=== PATIENT | male | born 1990 ===

== ENCOUNTER 2021-03-13 06:36 | Observation (INO) | payer OTHER ==
[2021-03-13] MEDS ORDERED: SODIUM CHLORIDE 0.9% 1,000 ML IV STA (06:51)
[2021-03-13] MEDS ORDERED: ACETAMINOPHEN TAB 500 MG TAB PO STA (06:52)
--- NOTE | 2021-03-13 07:11 | XR ---
EXAMINATION TYPE: XR chest 2V DATE OF EXAM: 03/13/2021 COMPARISON: NONE HISTORY: Chest pain TECHNIQUE: Frontal and lateral views of the chest are obtained. FINDINGS: There is no focal air space opacity, pleural effusion, or pneumothorax seen. The cardiac silhouette size is within normal limits. The osseous structures are intact. IMPRESSION: No acute cardiopulmonary process.
--- NOTE | 2021-03-13 07:16 | CT ---
EXAMINATION TYPE: CT brain wo con DATE OF EXAM: 03/13/2021 COMPARISON: None HISTORY: Seizure, dizziness CT DLP: 1099.4 mGycm. Automated Exposure Control for Dose Reduction was Utilized. TECHNIQUE: CT scan of the head is performed without contrast. FINDINGS: There is a remote infarct involving the cortex and subcortical white matter in the right fr ontal lobe. There is no mass effect or shift of midline structures. There is no acute intraparenchyma l extra-axial hemorrhage. The ventricles, basal cisterns and sulci over convexities are within normal limits and there is no si gnificant atrophy. Posterior fossa is grossly normal. There are chronic inflammatory changes in the left maxillary sinus. There is a right frontal calvaria l defect. IMPRESSION: 1. No acute bleed or mass effect. 2. 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
--- NOTE | 2021-03-13 07:17 | ED ---
General Adult HPI - General Chief complaint: Dizziness Stated complaint: Dizziness, fever Time Seen by Provider: 03/13/21 06:44 Source: patient, EMS, RN notes reviewed Mode of arrival: EMS Limitations: language barrier - History of Present Illness Initial comments: This a 31-year-old male presents emergency department via EMS for episode of shaking, dizziness, not feeling well. Patient is here with friend who is translating stated that he was convulsing, shaking was not responding to [id number] months side noted to be spitting or foaming at the mouth that time he did stop shaking was confused but is at his baseline currently. Patient is not taking medications. Denies chest pain shortness breath abdominal pain states he just feels weak port fever specifically cough congestion. Patient had an episode like this in the past but denies any history of seizures that he's been diagnosed with. - Related Data Allergies Allergy/AdvReac Type Severity Reaction Status Date / Time No Known Allergies Allergy Verified 03/13/21 06:53 Review of Systems ROS Statement: Those systems with pertinent positive or pertinent negative responses have been documented in the HPI. ROS Other: All systems not noted in ROS Statement are negative. Past Medical History Past Medical History: No Reported History History of Any Multi-Drug Resistant Organisms: None Reported Past Surgical History: No Surgical Hx Reported Past Psychological History: No Psychological Hx Reported Smoking Status: Never smoker Past Alcohol Use History: None Reported Past Drug Use History: None Reported General Exam Limitations: language barrier General appearance: alert, in no apparent distress Head exam: Present: atraumatic, normocephalic, normal inspection Eye exam: Present: normal appearance, PERRL, EOMI. Absent: scleral icterus, conjunctival injection, periorbital swelling ENT exam: Present: normal oropharynx, mucous membranes moist, TM's normal bilaterally Neck exam: Present: normal inspection, full ROM. Absent: tenderness, meningismus, lymphadenopathy Respiratory exam: Present: normal lung sounds bilaterally. Absent: respiratory distress, wheezes, rales, rhonchi, stridor Cardiovascular Exam: Present: normal rhythm, tachycardia, normal heart sounds. Absent: systolic murmur, diastolic murmur, rubs, gallop, clicks GI/Abdominal exam: Present: soft, normal bowel sounds. Absent: distended, tenderness, guarding, rebound, rigid Neurological exam: Present: alert, oriented X3, CN II-XII intact, reflexes normal. Absent: motor sensory deficit Skin exam: Present: warm, dry, intact, normal color. Absent: rash Course Vital Signs 03/13/21 03/13/21 06:44 07:41 Temperature 99.4 F Pulse Rate 114 H 98 Respiratory 22 16 Rate Blood Pressure 179/103 153/91 O2 Sat by Pulse 98 98 Oximetry EKG Findings - EKG Comments: EKG Findings:: EKG performed at 6:46 sinus tachycardia inverted T waves noted diffusely Medical Decision Making - Medical Decision Making This a 31-year-old presented from via EMS after she This Appears to Be Related to a Seizure. CT Was Performed Which Showed Old Infarct on CT. Patient States He Had a Headache Injury 10 Years Ago When He Fell off a Horse. Patient Has No History of Seizures. Patient Has No Onset Seizures. Patient Be Admitted for Neurology Evaluation Also Noted to Have Abnormal EKG with No Baseline EKG. Patient Be Admitted for Repeat Cardiac Enzymes, Neurology Test Desk Trouble Locator Evaluation - Lab Data Result diagrams: 03/13/21 07:35 03/13/21 07:35 Lab Results 03/13/21 03/13/21 03/13/21 Range/Units 07:32 07:32 07:35 WBC 14.2 H (3.8-10.6) k/uL RBC 5.71 (4.30-5.90) m/uL Hgb 16.3 (13.0-17.5) gm/dL Hct 46.7 (39.0-53.0) % MCV 81.8 (80.0-100.0) fL MCH 28.5 (25.0-35.0) pg MCHC 34.9 (31.0-37.0) g/dL RDW 12.8 (11.5-15.5) % Plt Count 234 (150-450) k/uL MPV 7.4 Neutrophils % 84 % Lymphocytes % 9 % Monocytes % 5 % Eosinophils % 1 % Basophils % 0 % Neutrophils # 11.8 H (1.3-7.7) k/uL Lymphocytes # 1.3 (1.0-4.8) k/uL Monocytes # 0.7 (0-1.0) k/uL Eosinophils # 0.2 (0-0.7) k/uL Basophils # 0.0 (0-0.2) k/uL PT (9.0-12.0) sec INR (<1.2) APTT (22.0-30.0) sec Sodium (137-145) mmol/L Potassium (3.5-5.1) mmol/L Chloride (98-107) mmol/L Carbon Dioxide (22-30) mmol/L Anion Gap mmol/L BUN (9-20) mg/dL Creatinine (0.66-1.25) mg/dL Est GFR (CKD-EPI)AfAm (>60 ml/min/1.73 sqM) Est GFR (CKD-EPI)NonAf (>60 ml/min/1.73 sqM) Glucose (74-99) mg/dL Plasma Lactic Acid Crow (0.7-2.0) mmol/L Calcium (8.4-10.2) mg/dL Magnesium (1.6-2.3) mg/dL Total Bilirubin (0.2-1.3) mg/dL AST (17-59) U/L ALT (4-49) U/L Alkaline Phosphatase (38-126) U/L Troponin I (0.000-0.034) ng/mL Total Protein (6.3-8.2) g/dL Albumin (3.5-5.0) g/dL Lipase (23-300) U/L Urine Color Light Yellow Urine Appearance Clear (Clear) Urine pH 5.5 (5.0-8.0) Ur Specific Lamy 1.011 (1.001-1.035) Urine Protein Negative (Negative) Urine Glucose (UA) Negative (Negative) Urine Ketones Negative (Negative) Urine Blood Negative (Negative) Urine Nitrite Negative (Negative) Urine Bilirubin Negative (Negative) Urine Urobilinogen <2.0 (<2.0) mg/dL Ur Leukocyte Esterase Negative (Negative) Urine Opiates Screen Not Detected (NotDetected) Ur Oxycodone Screen Not Detected (NotDetected) Urine Methadone Screen Not Detected (NotDetected) Ur Propoxyphene Screen Not Detected (NotDetected) Ur Barbiturates Screen Not Detected (NotDetected) U Tricyclic Antidepress Not Detected (NotDetected) Ur Phencyclidine Scrn Not Detected (NotDetected) Ur Amphetamines Screen Not Detected (NotDetected) U Methamphetamines Scrn Not Detected (NotDetected) U Benzodiazepines Scrn Not Detected (NotDetected) Urine Cocaine Screen Not Detected (NotDetected) U Marijuana (THC) Screen Not Detected (NotDetected) Coronavirus (PCR) Not Detected (Not Detectd) 03/13/21 03/13/21 03/13/21 Range/Units 07:35 07:35 07:35 WBC (3.8-10.6) k/uL RBC (4.30-5.90) m/uL Hgb (13.0-17.5) gm/dL Hct (39.0-53.0) % MCV (80.0-100.0) fL MCH (25.0-35.0) pg MCHC (31.0-37.0) g/dL RDW (11.5-15.5) % Plt Count (150-450) k/uL MPV Neutrophils % % Lymphocytes % % Monocytes % % Eosinophils % % Basophils % % Neutrophils # (1.3-7.7) k/uL Lymphocytes # (1.0-4.8) k/uL Monocytes # (0-1.0) k/uL Eosinophils # (0-0.7) k/uL Basophils # (0-0.2) k/uL PT 10.0 (9.0-12.0) sec INR 0.9 (<1.2) APTT 20.9 L (22.0-30.0) sec Sodium 139 (137-145) mmol/L Potassium 3.7 (3.5-5.1) mmol/L Chloride 106 (98-107) mmol/L Carbon Dioxide 22 (22-30) mmol/L Anion Gap 11 mmol/L BUN 14 (9-20) mg/dL Creatinine 0.73 (0.66-1.25) mg/dL Est GFR (CKD-EPI)AfAm >90 (>60 ml/min/1.73 sqM) Est GFR (CKD-EPI)NonAf >90 (>60 ml/min/1.73 sqM) Glucose 120 H (74-99) mg/dL Plasma Lactic Acid Crow (0.7-2.0) mmol/L Calcium 9.3 (8.4-10.2) mg/dL Magnesium 2.2 (1.6-2.3) mg/dL Total Bilirubin 0.9 (0.2-1.3) mg/dL AST 38 (17-59) U/L ALT 30 (4-49) U/L Alkaline Phosphatase 77 (38-126) U/L Troponin I 0.015 (0.000-0.034) ng/mL Total Protein 7.6 (6.3-8.2) g/dL Albumin 4.4 (3.5-5.0) g/dL Lipase 112 (23-300) U/L Urine Color Urine Appearance (Clear) Urine pH (5.0-8.0) Ur Specific Lamy (1.001-1.035) Urine Protein (Negative) Urine Glucose (UA) (Negative) Urine Ketones (Negative) Urine Blood (Negative) Urine Nitrite (Negative) Urine Bilirubin (Negative) Urine Urobilinogen (<2.0) mg/dL Ur Leukocyte Esterase (Negative) Urine Opiates Screen (NotDetected) Ur Oxycodone Screen (NotDetected) Urine Methadone Screen (NotDetected) Ur Propoxyphene Screen (NotDetected) Ur Barbiturates Screen (NotDetected) U Tricyclic Antidepress (NotDetected) Ur Phencyclidine Scrn (NotDetected) Ur Amphetamines Screen (NotDetected) U Methamphetamines Scrn (NotDetected) U Benzodiazepines Scrn (NotDetected) Urine Cocaine Screen (NotDetected) U Marijuana (THC) Screen (NotDetected) Coronavirus (PCR) (Not Detectd) 03/13/21 Range/Units 07:35 WBC (3.8-10.6) k/uL RBC (4.30-5.90) m/uL Hgb (13.0-17.5) gm/dL Hct (39.0-53.0) % MCV (80.0-100.0) fL MCH (25.0-35.0) pg MCHC (31.0-37.0) g/dL RDW (11.5-15.5) % Plt Count (150-450) k/uL MPV Neutrophils % % Lymphocytes % % Monocytes % % Eosinophils % % Basophils % % Neutrophils # (1.3-7.7) k/uL Lymphocytes # (1.0-4.8) k/uL Monocytes # (0-1.0) k/uL Eosinophils # (0-0.7) k/uL Basophils # (0-0.2) k/uL PT (9.0-12.0) sec INR (<1.2) APTT (22.0-30.0) sec Sodium (137-145) mmol/L Potassium (3.5-5.1) mmol/L Chloride (98-107) mmol/L Carbon Dioxide (22-30) mmol/L Anion Gap mmol/L BUN (9-20) mg/dL Creatinine (0.66-1.25) mg/dL Est GFR (CKD-EPI)AfAm (>60 ml/min/1.73 sqM) Est GFR (CKD-EPI)NonAf (>60 ml/min/1.73 sqM) Glucose (74-99) mg/dL Plasma Lactic Acid Crow 1.7 (0.7-2.0) mmol/L Calcium (8.4-10.2) mg/dL Magnesium (1.6-2.3) mg/dL Total Bilirubin (0.2-1.3) mg/dL AST (17-59) U/L ALT (4-49) U/L Alkaline Phosphatase (38-126) U/L Troponin I (0.000-0.034) ng/mL Total Protein (6.3-8.2) g/dL Albumin (3.5-5.0) g/dL Lipase (23-300) U/L Urine Color Urine Appearance (Clear) Urine pH (5.0-8.0) Ur Specific Lamy (1.001-1.035) Urine Protein (Negative) Urine Glucose (UA) (Negative) Urine Ketones (Negative) Urine Blood (Negative) Urine Nitrite (Negative) Urine Bilirubin (Negative) Urine Urobilinogen (<2.0) mg/dL Ur Leukocyte Esterase (Negative) Urine Opiates Screen (NotDetected) Ur Oxycodone Screen (NotDetected) Urine Methadone Screen (NotDetected) Ur Propoxyphene Screen (NotDetected) Ur Barbiturates Screen (NotDetected) U Tricyclic Antidepress (NotDetected) Ur Phencyclidine Scrn (NotDetected) Ur Amphetamines Screen (NotDetected) U Methamphetamines Scrn (NotDetected) U Benzodiazepines Scrn (NotDetected) Urine Cocaine Screen (NotDetected) U Marijuana (THC) Screen (NotDetected) Coronavirus (PCR) (Not Detectd) Disposition Clinical Impression: Seizure, Abnormal EKG Disposition: ADMITTED IP TO THIS HOSP Condition: Poor Referrals: None,Stated [Primary Care Provider] - 1-2 days
[2021-03-13 07:52] LABS: Appearance,Urine Clear (Clear); Bilirubin,Urine Negative (Negative); Blood,Urine Negative (Negative); Color,Urine Light Yellow; Glucose,Urine (UA) Negative (Negative); Ketones,Urine Negative (Negative); Leukocyte Esterase,Urine Negative (Negative); Nitrite,Urine Negative (Negative); PH, Urine 5.5 (5.0-8.0); Protein,Urine Negative (Negative); Specific Gravity,Urine 1.011 (1.001-1.035); Urobilinogen,Urine <2.0 mg/dL (<2.0)
[2021-03-13 08:03] LABS: Basophils % (A) 0 %; Eosinophils # (A) 0.2 k/uL (0-0.7); Eosinophils % (A) 1 %; HCT 46.7 % (39.0-53.0); HGB 16.3 gm/dL (13.0-17.5); Lymphocytes # (A) 1.3 k/uL (1.0-4.8); Lymphocytes % (A) 9 %; MCH 28.5 pg (25.0-35.0); MCHC 34.9 g/dL (31.0-37.0); MCV 81.8 fL (80.0-100.0); Mean Platelet Volume 7.4; Monocytes # (A) 0.7 k/uL (0-1.0); Monocytes % (A) 5 %; Neutrophils # (A) 11.8 k/uL (1.3-7.7); Neutrophils % (A) 84 %; Platelet Count 234 k/uL (150-450); RBC 5.71 m/uL (4.30-5.90); RDW 12.8 % (11.5-15.5); WBC 14.2 k/uL (3.8-10.6)
[2021-03-13 08:09] LABS: Phencyclidine Screen,Urine Not Detected (NotDetected); Urn Cannabinoid Scrn Not Detected (NotDetected)
[2021-03-13 08:10] LABS: Amphetamine Screen,Urine Not Detected (NotDetected); Barbiturate Screen,Urine Not Detected (NotDetected); Benzodiazepines Screen,Urine Not Detected (NotDetected); Cocaine Screen,Urine Not Detected (NotDetected); Methadone Screen, Urine Not Detected (NotDetected); Opiate Screen,Urine Not Detected (NotDetected); Oxycodone Screen, Urine Not Detected (NotDetected); Tricyclic Antidepressant,Urine Not Detected (NotDetected)
[2021-03-13 08:19] LABS: INR 0.9 (<1.2)
[2021-03-13 08:25] LABS: Partial Thromboplastin Time 20.9 sec (22.0-30.0)
[2021-03-13 08:35] LABS: ALT 30 U/L (4-49); African American GFR (CKD) >90 (>60 ml/min/1.73 sqM); Albumin 4.4 g/dL (3.5-5.0); Anion Gap 11 mmol/L; Blood Urea Nitrogen 14 mg/dL (9-20); Calcium 9.3 mg/dL (8.4-10.2); Carbon Dioxide 22 mmol/L (22-30); Chloride 106 mmol/L (98-107); Glucose 120 mg/dL (74-99); Lipase 112 U/L (23-300); Non-African American GFR(CKD) >90 (>60 ml/min/1.73 sqM); Sodium 139 mmol/L (137-145); Total Bilirubin 0.9 mg/dL (0.2-1.3); Total Protein 7.6 g/dL (6.3-8.2)
[2021-03-13 08:42] LABS: AST 38 U/L (17-59); Alkaline Phosphatase 77 U/L (38-126); Magnesium 2.2 mg/dL (1.6-2.3); Potassium 3.7 mmol/L (3.5-5.1)
[2021-03-13] MEDS ORDERED: NALOXONE 0.4 MG/ML 1 ML VIAL IV PRN (08:55)
[2021-03-13] MEDS ORDERED: ACETAMINOPHEN TAB 325 MG TAB PO PRN (08:55)
[2021-03-13] MEDS ORDERED: LORazepam 2 MG/ML INJ IV PRN (08:57)
[2021-03-13] MEDS ORDERED: levETIRAcetam IV 1,000 MG in SALINE 1 100ML.BAG IVPB STA (08:58)
[2021-03-13] MEDS: SODIUM CHLORIDE 0.9% 1,000 ML IV SCH (09:09)
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
[2021-03-13] MEDS ORDERED: LACOSAMIDE 50 MG TABLET PO SCH (13:00)
--- NOTE | 2021-03-13 15:00 | CONS ---
CONSULTATION This is a 31-year-old Azerbaijani-speaking gentleman who presented to the hospital with a seizure disorder and Cardiology has been consulted because of an abnormal EKG. I communicated with him thru one of his friends who is at bedside who speaks Latvian well. The patient does not have any cardiac symptoms. There is no history of chest pain, difficulty in breathing, syncope or focal neurological deficits. There is no prior history of coronary artery disease, congestive heart failure, or valvular heart disease. He came in having had an episode of seizure and has been evaluated by Neurology and is being treated for the same. One set of troponin is negative. His urine drug screen is negative. Coronavirus test is negative. EKG shows normal sinus rhythm with inferolateral ST-T wave changes of unclear clinical significance. His blood pressure was quite elevated when he first came in, but blood pressures have been good since. PAST MEDICAL HISTORY: Negative for hypertension, diabetes or dyslipidemia. MEDICATIONS: None. ALLERGIES: None. FAMILY HISTORY: Negative for premature coronary artery disease. SOCIAL HISTORY: Negative for smoking issues or drug abuse. REVIEW OF SYSTEMS: Review of systems is significant for seizure. I am not able to obtain rest of the review of systems because of the language difficulties PHYSICAL EXAMINATION: On exam, comfortable at rest. Vital signs are stable. There is no jugular venous distention. Carotid upstroke is normal. There is no bruit. Chest exam reveals good air entry bilaterally. Heart exam reveals first and second heart sounds. No gallop. No murmur. No rub. Abdomen is soft, nontender. Examination of extremities did not reveal edema. Peripheral pulses are felt. LABS: Show hemoglobin of 16.2, platelet count is 234, potassium is 3.7, creatinine is 0.7. UA negative. Drug screen is negative. Jenkins virus test is negative. EKG is abnormal as described above. ASSESSMENT: Abnormal EKG. PLAN: I will obtain a 2D echo. If that shows a structurally normal heart, he can be discharged home tomorrow and if necessary I will perform an outpatient stress test on him. MMODL / IJN: [id number] /
--- NOTE | 2021-03-13 23:03 | P.HPIM ---
History of Present Illness H&P Date: 03/13/21 Chief Complaint: Seizures Patient is a 31-year-old male without significant past medical history was brought to the hospital by his friend due to generalized shakiness and seizure activity at home. At around 4 AM while he was sleeping patient all of a sudden started shaking his head and all extremities and also frothing from the mouth. Generalized shakiness lasted about 5 minutes and patient seemed to be unconscious at the time as per his friend. After the episode patient was feeling very weak and laid on the bed for about 20 minutes. No bladder or bowel incontinence. No tongue biting. Apparently patient had similar episode in February 2020. Patient had head injury about 10 years ago. Patient fell from the horse and hit his head hard on the ground. He did lose his consciousness at the time briefly.. Patient was not [place], his home country and did not seek medical attention at the time. Denies any recent illnesses. No fever no chills. No nausea vomiting abdominal pain or diarrhea. No recent travel. On admission chest x-ray showed no acute cardiopulmonary process CT head showed no acute bleed or mass-effect. 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 EKG showed sinus tachycardia with T wave abnormality. With T wave inversions in the lateral leads. Laboratory data showed WBC 14.2 hemoglobin 16.3 and platelets 234 neutrophils 11.8 Sodium 139 potassium 3.7 BUN 14 and creatinine 0.73 lactic acid 1.7 Troponin 0 0.015, 0.015 UA negative for infection UDS is negative COVID-19 PCR not detected. Review of Systems Review of systems could not be obtained from the patient. Past Medical History Past Medical History: No Reported History History of Any Multi-Drug Resistant Organisms: None Reported Past Surgical History: No Surgical Hx Reported Past Psychological History: No Psychological Hx Reported Smoking Status: Never smoker Past Alcohol Use History: None Reported Past Drug Use History: None Reported Medications and Allergies Home Medications Medication Instructions Recorded Confirmed Type No Known Home Medications 03/13/21 03/13/21 History Allergies Allergy/AdvReac Type Severity Reaction Status Date / Time No Known Allergies Allergy Verified 03/13/21 10:05 Physical Exam Vitals: Vital Signs Temp Pulse Resp BP Pulse Ox 03/13/21 11:00 98 F 70 14 115/69 96 03/13/21 10:00 76 14 131/92 97 03/13/21 08:00 87 17 153/91 95 03/13/21 07:41 98 16 153/91 98 03/13/21 06:44 99.4 F 114 H 22 179/103 98 Intake and Output 03/12/21 03/13/21 03/13/21 22:59 06:59 14:59 Other: Weight 77.111 kg PHYSICAL EXAMINATION: Patient is lying in the bed comfortably, no acute distress, Patient is sedated. HEENT: Normocephalic. Neck is supple. Pupils reactive. Nostrils clear. Oral cavity is moist. Neck reveals no JVD, carotid bruits, or thyromegaly. CHEST EXAMINATION: Trachea is central. Symmetrical expansion. Lung wu clear to auscultation and percussion. CARDIAC: Normal S1, S2 with no gallops. No murmurs ABDOMEN: Soft. Bowel sounds normal. No organomegaly. No abdominal bruits. Extremities: reveal no edema. No clubbing or cyanosis Neurologically Patient is sedated. No gross focal deficits noted Skin: No rash or skin lesions. Psychiatric: Could not be assessed at this time. Musculoskeletal: No joint swelling or deformity. Results CBC & Chem 7: 03/13/21 07:35 03/13/21 07:35 Labs: Abnormal Lab Results - Last 24 Hours (Table) 03/13/21 03/13/21 03/13/21 Range/Units 07:35 07:35 07:35 WBC 14.2 H (3.8-10.6) k/uL Neutrophils # 11.8 H (1.3-7.7) k/uL APTT 20.9 L (22.0-30.0) sec Glucose 120 H (74-99) mg/dL Assessment and Plan Assessment: New onset generalized tonic clonic seizures. 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 Abnormal T wave inversions in the twelve-lead EKG DVT prophylaxis Plan: Patient will be continued on gentle IV hydration and patient was given a dose of Keppra IV 1 g in the ER. Patient was seen by neurology and started on Vimpat 50 mg twice daily. Continue to monitor seizure and fall precautions. EEG was ordered and MRI of the brain with and without contrast. Cardiology was consulted abnormal EKG. 2D echocardiogram was ordered. Continue to follow closely.
[2021-03-14] MEDS: SODIUM CHLORIDE 0.9% 1,000 ML IV SCH ×2 (04:08→17:25)
[2021-03-14] MEDS: LACOSAMIDE 50 MG TABLET PO SCH ×2 (05:53→17:56)
[2021-03-14 08:28] LABS: Basophils # (A) 0.1 k/uL (0-0.2); Basophils % (A) 1 %; Eosinophils # (A) 0.3 k/uL (0-0.7); Eosinophils % (A) 5 %; HCT 43.7 % (39.0-53.0); HGB 15.2 gm/dL (13.0-17.5); Lymphocytes # (A) 2.1 k/uL (1.0-4.8); Lymphocytes % (A) 33 %; MCHC 34.8 g/dL (31.0-37.0); MCV 83.2 fL (80.0-100.0); Mean Platelet Volume 7.5; Monocytes # (A) 0.4 k/uL (0-1.0); Monocytes % (A) 6 %; Neutrophils # (A) 3.3 k/uL (1.3-7.7); Neutrophils % (A) 53 %; Platelet Count 207 k/uL (150-450); RBC 5.25 m/uL (4.30-5.90); WBC 6.3 k/uL (3.8-10.6)
[2021-03-14 08:43] LABS: African American GFR (CKD) >90 (>60 ml/min/1.73 sqM); Anion Gap 8 mmol/L; Blood Urea Nitrogen 14 mg/dL (9-20); Calcium 8.7 mg/dL (8.4-10.2); Carbon Dioxide 23 mmol/L (22-30); Chloride 109 mmol/L (98-107); Glucose 92 mg/dL (74-99); Non-African American GFR(CKD) >90 (>60 ml/min/1.73 sqM); Potassium 4.1 mmol/L (3.5-5.1); Sodium 140 mmol/L (137-145)
--- NOTE | 2021-03-14 11:08 | P.PN ---
Subjective Progress Note Date: 03/14/21 The patient is seen at bedside and feels he is doing better. Per his nurse no further seizure-like activity that is reported overnight or any today. Objective - Vital Signs Vital signs: Vital Signs Temp 97.8 F 03/14/21 08:00 Pulse 64 03/14/21 08:00 Resp 17 03/14/21 08:00 BP 125/74 03/14/21 08:00 Pulse Ox 98 03/14/21 08:00 Intake & Output 03/13/21 03/14/21 03/14/21 18:59 06:59 18:59 Intake Total 180 Balance 180 Weight 89.1 kg Intake: Oral 180 Other: # Voids 2 1 - Exam GENERAL: The patient is lying in bed and is not in acute distress. NEUROLOGICAL: Higher mental function: The patient is awake, alert, oriented to self, place and time. Patient is following commands. No aphasia and no neglect. Cranial nerves: The pupils are round, equal and reactive to light and accommodation. Visual wu are full to confrontation throughout. Extraocular movement is intact no nystagmus is noted. Facial sensation is normal to touch throughout. The facial strength is normal throughout. Hearing is normal bilaterally to hand rub. Tongue is midline and moved [id number] without any difficulty. No dysarthria is noted. Shoulder shrug is normal bilaterally. Motor: Gait is deferred. The strength is 5 over 5 throughout. Normal tone and bulk. Cerebellum: Normal finger to nose bilaterally. Sensation: Sensation is normal to touch throughout. Reflexes (right/left): 2+ throughout. Plantars are downgoing bilaterally. WORK-UP: Urine drug screen is negative Coronavirus PCR was not detected that. CT of the head is reported as no acute bleed or mass effect. Remote infarct involving the right frontal lobe with an overlying the calvarial defect. Personally reviewed the CT of the head and the patient does have encephalomalacia over the right frontal. - Labs CBC & Chem 7: 03/14/21 07:38 03/14/21 07:38 Labs: Abnormal Lab Results - Last 24 Hours (Table) 03/14/21 Range/Units 07:38 Chloride 109 H (98-107) mmol/L Assessment and Plan Assessment: * New onset seizure (had jerking of all extremities with foaming around the mouth lasting 5 minutes with post-ictal onfusion for 20 minutes. Had similar episode in 02/2020). 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 * Pending on STAT EEG ordered 03/13/2021. It will likely be performed today. * Ordered MRI Brain w/ and w/o urgent but not done (since not techs today, can be done as outpatient). * Every 4 hours neuro checks * Placed on seizure precaution and seizure pads. * We'll defer the rest of medical management to the primary team. * Per the [place] DMV because of the patient's the episodes of loss of consciousness and it appears like seizure-like activity he is to avoid driving for 6 month until seizure-free. He's avoid heights, swimming unassisted, using heavy machinery. This was explained to the patient and his friend state that patient does not drive. * Patient is to follow up with a neurologist as an outpatient with 1-2 weeks. After EEG today, patient is clear from neurological perspective if remains stable. The plan is discussed with the patient and his friend (Isidro) who is at bedside and all questions are answered. Marek Deng M.D. Neuro-hospitalist Time with Patient: Less than 30
--- NOTE | 2021-03-14 11:33 | ECHOF ---
Referral Reason:abnormal ekg MEASUREMENTS -------- HEIGHT: 177.8 cm WEIGHT: 77.1 kg BP: RVIDd: 3.2 cm (< 3.3) IVSd: 1.4 cm (0.6 - 1.1) LVIDd: 4.3 cm (3.9 - 5.3) LVPWd: 1.1 cm (0.6 - 1.1) IVSs: 1.8 cm LVIDs: 2.9 cm LVPWs: 1.6 cm LAESV Index (A-L): 21.16 ml/m Ao Diam: 3.6 cm (2.0 - 3.7) AV Cusp: 2.5 cm (1.5 - 2.6) MV EXCURSION: 19.676 mm (> 18.000) MV EF SLOPE: 113 mm/s (70 - 150) EPSS: 0.7 cm MV E Mitch: 0.96 m/s MV DecT: 172 ms MV A Mitch: 0.61 m/s MV E/A Ratio: 1.58 RAP: 5.00 mmHg RVSP: 27.91 mmHg FINDINGS -------- Sinus rhythm. This was a technically adequate study. The left ventricular size is normal. There is mild concentric left ventricular hypertrophy. Overa ll left ventricular systolic function is normal with, an EF between 55 - 60 %. The diastolic fillin g pattern is normal for the age of the patient {E/E'}. The right ventricle is normal in size. Normal LA size by volume 22+/-6 ml/m2. The right atrial size is normal. Interatrial and interventricular septum intact. The aortic valve is trileaflet and appears structurally normal. There is no evidence of aortic regu rgitation. There is no evidence of aortic stenosis. No mitral regurgitation. Mild tricuspid regurgitation present. There is no evidence of pulmonary hypertension. The right v entricular systolic pressure, as measured by Doppler, is 27.91mmHg. There is no pulmonic regurgitation present. The aortic root size is normal. IVC Not well visulized. There is no pericardial effusion. CONCLUSIONS -------- 1. The left ventricular size is normal. 2. There is mild concentric left ventricular hypertrophy. 3. Overall left ventricular systolic function is normal with, an EF between 55 - 60 %. 4. Mild tricuspid regurgitation present. PRINT FINISHING WORKER: Tamanna Ohara RDCS
--- NOTE | 2021-03-14 16:39 | EEG ---
ELECTROENCEPHALOGRAM REPORT DATE OF SERVICE: 03/14/2021 CLINICAL HISTORY: This is a 31-year-old gentleman who presented to the hospital because of seizure-like activity. The video EEG is obtained to evaluate for seizure epileptiform activity. RELEVANT MEDICATION: The patient is on Vimpat. EEG TYPE: A routine 21-channel EEG is performed with video using the 10/20 electrode placement system. DESCRIPTION: Wakefulness and drowsiness are obtained. The study is extremely limited and I could not appreciate the background because of the diffuse electrode artifact throughout the entire study. I could not also appreciate any physiological stage II sleep architecture. I cannot comment on any focal slowing because of the limited study. artifact). Interictal and ictal: I could not appreciate any epileptiform or seizure activity. ACTIVATION PROCEDURE: Photic stimulation and hyperventilation are not performed. CLINICAL INTERPRETATION: This is a limited study because of diffuse electrode artifact. There is no appreciable epileptiform or seizure activity during the study. Otherwise, I cannot comment on the patient's background or focal slowing. Clinical correlation is recommended. RECOMMENDATION: Recommend repeating this study. MMODL / IJN: [id number] / TUAN
--- NOTE | 2021-03-14 17:26 | PN ---
PROGRESS NOTE Jl is 31-year-old gentleman who was admitted to hospital with seizures and we were consulted because of an abnormal EKG and echocardiogram I performed. He has a structurally normal heart. He has had a fairly uneventful stay overnight. I am not able to communicate with him, as there is nobody around who can translate, but on exam, vital signs are stable. Chest exam reveals good air entry bilaterally. Heart exam reveals first and second heart sounds. No gallop. Abdomen is soft. Examination of extremities did not reveal any edema. Peripheral pulses are felt. ASSESSMENT: Abnormal EKG. Cardiac workup is benign. Physical exam is normal. Echocardiogram shows normal LV function and wall motion. No further cardiac workup at this time. MMODL / IJN: [id number] /
--- NOTE | 2021-03-14 22:45 | P.PN ---
Subjective Progress Note Date: 03/14/21 Principal diagnosis: New onset seizures. Patient is a 31-year-old male without significant past medical history was brought to the hospital by his friend due to generalized shakiness and seizure activity at home. At around 4 AM while he was sleeping patient all of a sudden started shaking his head and all extremities and also frothing from the mouth. Generalized shakiness lasted about 5 minutes and patient seemed to be unconscious at the time as per his friend. After the episode patient was feeling very weak and laid on the bed for about 20 minutes. No bladder or bowel incontinence. No tongue biting. Apparently patient had similar episode in February 2020. Patient had head injury about 10 years ago. Patient fell from the horse and hit his head hard on the ground. He did lose his consciousness at the time briefly.. Patient was not [place], his home country and did not seek medical attention at the time. Denies any recent illnesses. No fever no chills. No nausea vomiting abdominal pain or diarrhea. No recent travel. On admission chest x-ray showed no acute cardiopulmonary process CT head showed no acute bleed or mass-effect. 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 EKG showed sinus tachycardia with T wave abnormality. With T wave inversions in the lateral leads. Laboratory data showed WBC 14.2 hemoglobin 16.3 and platelets 234 neutrophils 11.8 Sodium 139 potassium 3.7 BUN 14 and creatinine 0.73 lactic acid 1.7 Troponin 0 0.015, 0.015 UA negative for infection UDS is negative COVID-19 PCR not detected. 03/14/2021 Patient is currently resting in the bed. Awake alert and oriented x3. Denied any complaints of headache or dizziness. Patient states that he is feeling better. Communicated with scientific manager heather. No further episodes of seizures. Patient had EEG done today. He was started Vimpat 50 mg twice daily. Ordered MRI of the brain can be done as an outpatient upon neurology follow-up. Patient has been afebrile. No nausea vomiting or abdominal pain or diarrhea. Current medications reviewed. Objective - Vital Signs Vital signs: Vital Signs Temp 98.9 F 03/14/21 20:00 Pulse 74 03/14/21 20:00 Resp 17 03/14/21 20:00 BP 112/61 03/14/21 20:00 Pulse Ox 95 03/14/21 20:00 Intake & Output 03/14/21 03/14/21 03/15/21 06:59 18:59 06:59 Intake Total 600 Balance 600 Weight 89.1 kg Intake: Oral 600 Other: # Voids 2 1 - Exam PHYSICAL EXAMINATION: Patient is lying in the bed comfortably, no acute distress, awake alert and oriented.. HEENT: Normocephalic. Neck is supple. Pupils reactive. Nostrils clear. Oral cavity is moist. Neck reveals no JVD, carotid bruits, or thyromegaly. CHEST EXAMINATION: Trachea is central. Symmetrical expansion. Lung wu clear to auscultation and percussion. CARDIAC: Normal S1, S2 with no gallops. No murmurs ABDOMEN: Soft. Bowel sounds normal. No organomegaly. No abdominal bruits. Extremities: reveal no edema. No clubbing or cyanosis Neurologically awake, alert, oriented x3 with well-coordinated movements. No focal deficits noted Skin: No rash or skin lesions. Psychiatric: Cooperative. Nonsuicidal Musculoskeletal: No joint swelling or deformity. Normal range of motion. - Labs CBC & Chem 7: 03/14/21 07:38 03/14/21 07:38 Labs: Abnormal Lab Results - Last 24 Hours (Table) 03/14/21 Range/Units 07:38 Chloride 109 H (98-107) mmol/L Assessment and Plan Assessment: New onset generalized tonic clonic seizures. 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 Abnormal T wave inversions in the twelve-lead EKG DVT prophylaxis Plan: patient was given a dose of Keppra IV 1 g in the ER. Patient was seen by neurology and started on Vimpat 50 mg twice daily. Continue to monitor seizure and fall precautions. EEG was done today MRI of the brain with and without contrast which can be done as out pt. Cardiology was consulted abnormal EKG. 2D echocardiogram was ordered. Continue to follow closely.
[2021-03-15 02:38] VITALS: RESP 18
[2021-03-15] MEDS: LACOSAMIDE 50 MG TABLET PO SCH (06:14)
[2021-03-15] MEDS: SODIUM CHLORIDE 0.9% 1,000 ML IV SCH (06:14)
--- NOTE | 2021-03-15 11:32 | MR ---
EXAMINATION TYPE: MR brain wo/w con DATE OF EXAM: 03/15/2021 COMPARISON: CT brain 2 days ago. HISTORY: Seizure TECHNIQUE: Multiplanar, multisequence images of the brain and brainstem is performed without and with IV contras t, utilizing 9 mL intravenous Gadavist . FINDINGS: Diffusion weighted images demonstrate no evidence of a recent infarct or other diffusion ab normality. There is focal area of encephalomalacia right frontal lobe adjacent to calvarial defect on CT redemonstrated. Ventricles and sulci otherwise unremarkable. No suspicious white matter changes o therwise seen. T2 coronal weighted images show hippocampal gyri are symmetric and felt within normal limits. Midline structures demonstrate normal morphology. The craniocervical junction appears within normal limits. Post contrast images demonstrate no abnormal enhancement. The dural venous sinuses appear pa tent. There is redemonstration of 2.1 cm mucous retention cyst or polyp in the anterior inferior left maxillary sinus otherwise paranasal sinuses are grossly clear. The globes are intact bilaterally. IMPRESSION: Old infarct or encephalomalacia right frontal lobe redemonstrated. No MRI evidence for re cent infarct. No abnormal enhancement identified.
[2021-03-15 12:45] VITALS: BP 119/80; PULSE 71; TEMP 97.9
--- NOTE | 2021-03-15 13:06 | P.PN ---
Subjective Progress Note Date: 03/15/21 Patient seen at bedside and she feels he continues to do well. Per the patient nurse no further seizures. She has not had any further seizures since he was in the hospital. Objective - Vital Signs Vital signs: Vital Signs Temp 97.9 F 03/15/21 12:00 Pulse 71 03/15/21 12:00 Resp 18 03/15/21 12:00 BP 119/80 03/15/21 12:00 Pulse Ox 97 03/15/21 12:00 Intake & Output 03/14/21 03/15/21 03/15/21 18:59 06:59 18:59 Intake Total 600 118 Balance 600 118 Weight 89.4 kg Intake: Oral 600 118 Other: Voiding Method Toilet # Voids 1 1 - Exam GENERAL: The patient is lying in bed and is not in acute distress. NEUROLOGICAL: Higher mental function: The patient is awake, alert, oriented to self, place and time. Patient is following commands. No aphasia and no neglect. Cranial nerves: The pupils are round, equal and reactive to light and accommodation. Visual wu are full to confrontation throughout. Extraocular movement is intact no nystagmus is noted. Facial sensation is normal to touch throughout. The facial strength is normal throughout. Hearing is normal bilaterally to hand rub. Tongue is midline and moved [id number] without any difficulty. No dysarthria is noted. Shoulder shrug is normal bilaterally. Motor: Gait is deferred. The strength is 5 over 5 throughout. Normal tone and bulk. Cerebellum: Normal finger to nose bilaterally. Sensation: Sensation is normal to touch throughout. Reflexes (right/left): 2+ throughout. Plantars are downgoing bilaterally. WORK-UP: Urine drug screen is negative Coronavirus PCR was not detected that. CT of the head is reported as no acute bleed or mass effect. Remote infarct involving the right frontal lobe with an overlying the calvarial defect. Personally reviewed the CT of the head and the patient does have encephalomalacia over the right frontal. Routine EEG on 03/14/2021 is limited study because of the diffuse electrode artifact. There is no epileptiform discharges or seizure during the study. Otherwise was difficult to assess the patient's background O focal slowing. 2D echo was reported as left ventricle size is normal. Mild concentric left ventricular hypertrophy. Ejection fraction 55-60%. Normal left atrial size by volume. MRI of the brain w/ and w/o is poor as old infarct or encephalomalacia over the right frontal lobe redemonstrated. No MRI evidence for recent infarct. No abnormal enhancement identified. - Labs CBC & Chem 7: 03/14/21 07:38 03/14/21 07:38 Assessment and Plan Assessment: * New onset seizure (had jerking of all extremities with foaming around the mouth lasting 5 minutes with post-ictal onfusion for 20 minutes. Had similar episode in 02/2020). 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 * Repeat routine EEG today (since study is limited on 03/14/2021 because of electrode artifact): The pre-Jennifer Sterling is there is focal slowing over the right frontal which is consistent with the patient history of encephalomalacia. Otherwise the background is normal and there is no epilepti form or seizure activity seen. * Every 4 hours neuro checks * On seizure precaution and seizure pads. * We'll defer the rest of medical management to the primary team. * Per the [place] DMV because of the patient's the episodes of loss of consciousness and it appears like seizure-like activity he is to avoid driving for 6 month until seizure-free. He's avoid heights, swimming unassisted, using heavy machinery. This was explained to the patient and his friend state that patient does not drive. * Patient is to follow up with a neurologist as an outpatient with 1-2 weeks. The plan is discussed with the patient's nurse. I discussed the plan with patient and his friend (Isidro via phone). Patient is clear from a neurological perspective. Marek Deng M.D. Neuro-hospitalist Time with Patient: Less than 30
--- NOTE | 2021-03-15 14:26 | EEG ---
ELECTROENCEPHALOGRAM REPORT DATE OF SERVICE: 03/15/2021 CLINICAL HISTORY: This is a 31-year-old gentleman with history of right frontal encephalomalacia, who presented to the hospital because of seizure-like activity. The video EEG is obtained to evaluate for seizure epileptiform activity. RELEVANT MEDICATION: Vimpat. EEG TYPE: A routine 21 channel EEG is performed with video using the 10/20 electrode placement system. DESCRIPTION: The patient is awake and drowsy during the study. During awake state, the posterior dominant rhythm consists of low to moderate voltage that is well modulated of 8-8.5 hertz. There is no physiological stage 2 sleep architecture. There is rare to occasional right frontal delta slowing seen. Interictal and ictal is none. ACTIVATION PROCEDURE: Photic stimulation did not evoke a posterior driving response. There is no abnormality during the photic stimulation. Hyperventilation is not performed. CLINICAL INTERPRETATION: This is an abnormal routine EEG. The focal slowing over the right frontal is consistent with the patient's history of encephalomalacia. Otherwise, the background is normal and there is no epileptiform discharges or seizure on this study. Clinical correlation is recommended. MMODL / IJN: [id number] / [facility]AN
== END 2021-03-15 13:46 | disposition home or self-care (01) ==
LOC: EC 06:36 → 3SCARD 09:48
PROVIDERS: ADMIT Internal Medicine; ATTEND Internal Medicine
DX: G40.909 Epilepsy, unspecified, not intractable, without status epilepticus (principal); R94.31 Abnormal electrocardiogram [ECG] [EKG]; G93.89 Other specified disorders of brain; R00.0 Tachycardia, unspecified; Z20.822 Contact with and (suspected) exposure to COVID-19; Z87.820 Personal history of traumatic brain injury; Z91.81 History of falling
CPT/HCPCS: 96361 ×3; 96374; 99285; 36415; 95819; 95816; 93005; 93306; 80053; 80048; 83605; 83690; 83735; 84484; 85025 ×2; 85610; 85730; 81003; 80306; 87635; 71046; 70450; 70553; G0378 ×3; J1953; A9585